=== PATIENT | male | born 1930 | race Caucasian/White ===

== ENCOUNTER 2017-10-30 14:32 | Emergency (ER) | payer MEDICARE ==
[~2017-10-30] VITALS: Ht 175.3 cm; Wt 75.0 kg
[~2017-10-30 14:32] MED LIST: ASPIRIN EC LOW81 MG OR; EFFIENT5 MG OR; FLOMAX0.4 M1 PO; LEVOTHYROXIN25 MC1 PO; METOPROL TAR25 M1 OR; MULTI OR; SIMVASTATIN40 MG OR
[2017-10-30 15:45] LABS: INFLUENZA A NONE DETECTED (NONE DETECT); INFLUENZA B NONE DETECTED (NONE DETECT)
[2017-10-30] MEDS ORDERED: LEVAQUIN750 M1 PO (16:43)
[2017-10-30] MEDS ORDERED: MUCINEX600 MG PO (16:43)
[2017-10-30 16:49] VITALS: BP 143/85
== END 2017-10-30 17:11 | disposition home or self-care (01) ==
LOC: ED 14:32
PROVIDERS: Emergency Medicine
DX: R91.8 Other nonspecific abnormal finding of lung field (principal); I95.9 Hypotension, unspecified